=== PATIENT | female | born 2000 | race Two or more races ===

== ENCOUNTER 2019-03-19 22:01 | Emergency (ER) | payer MEDICAID ==
[~2019-03-19] VITALS: Ht 162.6 cm; Wt 54.4 kg
[2019-03-19 22:07] VITALS: BP 125/82
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
[2019-03-19] MEDS ORDERED: Acetaminophen 500mg (ES) tab ORAL ONE (22:15)
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
--- NOTE | 2019-03-20 00:17 | Diagnostic Imaging Report ---
EXAM: CT Head Without Intravenous Contrast CLINICAL HISTORY: INJ TECHNIQUE: Axial computed tomography images of the head brain without intravenous contrast. CTDI is 60 mGy and DLP is 1370 mGy-cm. One or more of the following dose reduction techniques were used: automated exposure control, adjustment of the mA and or kV according to patient size, use of iterative reconstruction technique. COMPARISON: No relevant prior studies available. FINDINGS: Brain: Unremarkable. No hemorrhage. No significant white matter disease. No edema. Ventricles: Unremarkable. No ventriculomegaly. Bones joints: Unremarkable. No acute fracture. Soft tissues: Unremarkable. Sinuses: Unremarkable as visualized. No acute sinusitis. Mastoid air cells: Unremarkable as visualized. No mastoid effusion. IMPRESSION: 1. No acute abnormality. 2. Unremarkable study.
--- NOTE | 2019-03-20 00:22 | Diagnostic Imaging Report ---
EXAM: XR Right Shoulder Complete, 2 or More Views CLINICAL HISTORY: INJ TECHNIQUE: Two or more views of the right shoulder. COMPARISON: No relevant prior studies available. FINDINGS: Bones joints: Unremarkable. No acute fracture. No dislocation. Soft tissues: Unremarkable. IMPRESSION: 1. No acute abnormality. 2. Unremarkable study.
[2019-03-20] MEDS ORDERED: IBUPROFEN600 MG ORAL (00:23)
[2019-03-20] MEDS ORDERED: ACETAMINOPHEN325 M1 ORAL (00:23)
[2019-03-20] MEDS ORDERED: ROBAXIN-750750 MG PO (00:23)
--- NOTE | 2019-03-20 00:27 | Diagnostic Imaging Report ---
EXAM: CT Cervical Spine Without Intravenous Contrast CLINICAL HISTORY: INJ TECHNIQUE: Axial computed tomography images of the cervical spine without intravenous contrast. CTDI is 33 mGy and DLP is 769 mGy-cm. One or more of the following dose reduction techniques were used: automated exposure control, adjustment of the mA and or kV according to patient size, use of iterative reconstruction technique. Coronal and sagittal reformatted images were created and reviewed. Axial reformatted images were created and reviewed. COMPARISON: No relevant prior studies available. FINDINGS: Vertebrae: Unremarkable. No acute fracture. Discs spinal canal neural foramina: No acute findings. No spinal canal stenosis. Soft tissues: Unremarkable. IMPRESSION: 1. No acute traumatic injury. 2. Unremarkable study.
--- NOTE | 2019-03-20 00:42 | Diagnostic Imaging Report ---
EXAM: CT Chest Without Intravenous Contrast CLINICAL HISTORY: INJ TECHNIQUE: Axial computed tomography images of the chest without intravenous contrast. CTDI is 25 mGy and DLP is 1121 mGy-cm. One or more of the following dose reduction techniques were used: automated exposure control, adjustment of the mA and or kV according to patient size, use of iterative reconstruction technique. COMPARISON: No relevant prior studies available. FINDINGS: Lungs: Unremarkable. No mass. No consolidation. Pleural space: Unremarkable. No pneumothorax. No significant effusion. Heart: Unremarkable. No cardiomegaly. No significant pericardial effusion. Bones joints: Unremarkable. No acute fracture. No dislocation. Soft tissues: Unremarkable. Vasculature: Unremarkable. No thoracic aortic aneurysm. Lymph nodes: Unremarkable. No enlarged lymph nodes. IMPRESSION: 1. No traumatic injury seen. 2. Unremarkable study.
--- NOTE | 2019-03-20 00:46 | Diagnostic Imaging Report ---
EXAM: CT Thoracic Spine Without Intravenous Contrast CLINICAL HISTORY: INJ TECHNIQUE: Axial computed tomography images of the thoracic spine without intravenous contrast. CTDI is 45 mGy and DLP is 2002 mGy-cm. One or more of the following dose reduction techniques were used: automated exposure control, adjustment of the mA and or kV according to patient size, use of iterative reconstruction technique. Coronal and sagittal reformatted images were created and reviewed. COMPARISON: No relevant prior studies available. FINDINGS: Vertebrae: Huntley right mild thoracic spine curvature. No acute fracture. Discs spinal canal neural foramina: No acute findings. No spinal canal stenosis. Soft tissues: Unremarkable. IMPRESSION: 1. No acute thoracic spine injury. 2. Huntley right mild thoracic spine curvature. 3. Otherwise normal study.
[2019-03-20 04:15] VITALS: BP 109/71
[2019-03-20 04:16] VITALS: BP 109/71
--- NOTE | 2019-03-20 04:16 | NUR ---
Patient discharged home with family, ambulating well, no distress, Rx and aaaaaACI given, explained, understood. F/U instructions given also
== END 2019-03-20 04:00 | disposition home or self-care (01) ==
LOC: EDBD 22:01 → EMR 23:00
DX: S16.1XXA Strain of muscle, fascia and tendon at neck level, initial encounter (principal); S40.011A Contusion of right shoulder, initial encounter; S29.012A Strain of muscle and tendon of back wall of thorax, initial encounter; V43.62XA Car passenger injured in collision with other type car in traffic accident, initial encounter; Y92.410 Unspecified street and highway as the place of occurrence of the external cause
CPT/HCPCS: 70450; 71250; 72125; 72128; 73030; 81025; Z7502; 99284